=== PATIENT | male | born 1955 | race Caucasian/White ===

== ENCOUNTER 2016-07-17 18:12 | Inpatient (IN) | payer BC ==
--- NOTE | ~2016-07-17 | HP ---
History And Physical [place] [id number] [facility] [place]. [address] NAME: KEYLA CORDOBA : 51 STATUS : ADM IN PAT#: [id number] AGE: 60 ADM/REG DATE : 07/18/16 MR#: [id number] REPORT SERV DATE: 07/18/16 DICTATED BY: SAMANTHA MAN DATE: 07/18/16 REPORT STATUS : Draft TRANSCRIBED BY: MODL DATE: 07/18/16 DATE OF ADMISSION: 07/18/2016 CHIEF COMPLAINT: A 60-year-old male presenting with volume overload, cough, and shortness of breath. HISTORY OF PRESENTING ILLNESS: The patient's history was obtained through careful interview with the patient, coupled with review of [facility] medical records. The patient states that around 05/22/2016 he began to feel "sick." He first thought he had bronchitis, went to see his primary care physician and was placed on a course of Z-Phu and steroids with some improvement of his health, but no complete resolution of symptoms. He has noticed a "rattling" in his chest over that period of time and a persistent cough productive of a clear sputum. Also since about mid May 2016 he has had new onset lower extremity edema that has gradually progressed and not only affecting his legs, but getting up into his abdomen. Now his abdominal wall has a stiffness and swelling to it, and he also feels as if there is abdominal distention anteriorly as well. He has had very poor energy and significant fatigue. He states "I have lost my endurance". He describes shortness of breath characterized by dyspnea on exertion and intermittent orthopnea as well (although, he does wear CPAP at night). He has had discomfort related to his edema but his greatest pain complaint has been at the base inside of his lungs, a sharp aching quality, 7/10 severity exacerbated by coughing and breathing. He has also had significant prostate symptoms over the last several days, with difficulty getting good urine flow and often just dribbling urine. He is very discouraged about a 20-pound weight gain approximately over the last month or so. No palpitations, no chest pain otherwise at least in the middle of his chest. REVIEW OF SYSTEMS: Otherwise 14-point review of systems was obtained and was negative. PAST MEDICAL HISTORY: 1. Diabetes. 2. Pneumonia x3 as a child. 3. Hypertension. 4. Postoperative left hip infection. 5. Nephrolithiasis. History And Physical [address] [address] NAME: KEYLA CORDOBA : 51 STATUS : ADM IN PAT#: [id number] AGE: 60 ADM/REG DATE : 07/18/16 MR#: [id number] REPORT SERV DATE: 07/18/16 DICTATED BY: SAMANTHA MAN DATE: 07/18/16 REPORT STATUS : Draft TRANSCRIBED BY: DELIA DATE: 07/18/16 6. Hypotestosteronism. 7. Obstructive sleep apnea, on nightly CPAP. PAST SURGICAL HISTORY: 1. Left hip replacement. 2. Vasectomy. 3. Sinus surgery. 4. Right hand surgery. 5. UPPP. ALLERGIES: NO KNOWN DRUG ALLERGIES. SOCIAL HISTORY: He is , lives alone in [place], [place]. 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 No tobacco abuse. He drinks alcohol in moderation. FAMILY HISTORY: Mother and father with diabetes. A strong family history of heart disease, rheumatoid arthritis, and cancer. CURRENT MEDICATIONS: 1. Aspirin 81 mg daily. 2. Lipitor 20 mg daily. 3. Vitamin D. 4. Hydrochlorothiazide 25 mg daily. 5. Metformin 500 mg p.o. daily. 6. Multivitamin. 7. Saw [place] 450 mg daily. 8. Telmisartan 40 mg p.o. daily. 9. Testosterone injection every week. PHYSICAL EXAMINATION: VITAL SIGNS: Temperature 98.3, pulse 143, blood pressure 138/84, respiratory rate 18, and O2 saturation 94% on room air. GENERAL: An ill-appearing male, in evidence of distress secondary to shortness of breath. HEENT: Pupils equal, round, and reactive to light. No conjunctival pallor. No scleral icterus. Nares are patent. Oropharynx is clear of obstruction. Moist mucous membranes. NECK: Trachea midline. No thyromegaly. LYMPH: No cervical lymphadenopathy. No supraclavicular lymphadenopathy. RESPIRATORY: The patient has wet rales on examination that extend about the mid lung symmetrically. No wheezes. No rhonchi. The patient has a quite labored respiratory effort. CARDIOVASCULAR: Tachycardic. Irregularly irregular. No murmurs, rubs, or gallops. The patient has deeply pitting lower extremity edema with tight ankles and calves. The edema extends all the way up into his pelvis. The patient even has pitting edema of his abdominal wall now. ABDOMEN: Quite distended by examination. No tympanic resonance on percussion. [facility] History And Physical [place] [address] [place]. [address] NAME: KEYLA CORDOBA : 51 STATUS : ADM IN PAT#: [id number] AGE: 60 ADM/REG DATE : 07/18/16 MR#: [id number] REPORT SERV DATE: 07/18/16 DICTATED BY: SAMANTHA MAN DATE: 07/18/16 REPORT STATUS : Draft TRANSCRIBED BY: DELIA DATE: 07/18/16 tender throughout. Nonfocal. No rebound. No guarding. No hepatosplenomegaly. DERMATOLOGICAL: Warm and dry extremities. No pallor. No cyanosis. PSYCHIATRIC: Normal affect. Good mood. Alert and oriented x3. LABORATORY DATA: Brain natriuretic peptide 692. Troponin 0.04. INR 1.5. Total bilirubin 1.6. White blood cell count 10.9, hemoglobin 18, hematocrit 52, and platelets 175. Sodium 138, potassium 3.9, chloride 102, bicarb 25, BUN 26, creatinine 1.54, and glucose 119. STUDIES: 1. Chest x-ray by my own evaluation shows pulmonary vascular congestion, cardiomegaly, mild pulmonary edema. 2. EKG by my own evaluation shows rapid atrial fibrillation right bundle-branch block. 3. A reported venous Doppler ultrasound of bilateral lower extremities earlier on the day leading up to admission was stated as being negative for DVT. ASSESSMENT AND PLAN: 1. New diagnosis congestive heart with exacerbation. Check an echocardiogram. Place on IV Bumex. Add Coreg. Continue ARB. 2. Rapid atrial fibrillation. Place on a Cardizem drip IV. Start Xarelto. Check an echocardiogram. Obtain a Cardiology consult. 3. Obstructive sleep apnea. Place on CPAP. 4. Diabetes. Check hemoglobin A1c. Place on sliding scale insulin. Continue metformin. 5. Benign prostatic hypertrophy with obstruction. We had to place a Chand catheter in the emergency department. We will have this in place for 24 hours. Start Flomax, Proscar, and monitor. KPL/MODL Samantha Man M.D. / [id number] CC: Jeancarlos Saleem M.D.
--- NOTE | ~2016-07-17 | CN ---
Consultation Report [facility] [address] [place]. [address] NAME: KEYLA CORDOBA : 51 STATUS : ADM IN [facility]#: [id number] AGE: 60 ADM/REG DATE : 07/18/16 MR#: [id number] REPORT SERV DATE: 07/18/16 DICTATED BY: TYLOR JONES DATE: 07/18/16 REPORT STATUS : Draft TRANSCRIBED BY: MODL DATE: 07/18/16 CONSULTATION DATE OF CONSULTATION: 07/18/2016 REASON FOR CONSULTATION: Volume overload, atrial fib with RVR. HISTORY OF PRESENT ILLNESS: Mr. Cordoba is a pleasant 60-year-old gentleman with a history of morbid obesity, BPH, GEORGIE on CPAP, pre-diabetes, hypertension, and right bundle branch block, who presents to [facility] with complaints of progressive dyspnea as well as lower extremity swelling and weight gain over the past one to two months. He states that he had been sick starting 05/22/2016, with a cough, which was thought to be an upper respiratory infection initially. He was treated with antibiotics, without much improvement. He had progression of his symptoms as well as dyspnea. Over the course of May as well as June, he started to notice swelling in his lower extremities up to his abdomen. He gained approximately 20 pounds over this period of time. He has had only progression in his symptoms as well as some orthopnea and dyspnea on exertion most recently, prompting him to present to [facility] for further evaluation and care. He denies having any other symptoms at this point in time. He denies having any palpitations, or overt chest pains. PAST MEDICAL HISTORY: As above. 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 He denies drinking alcohol, doing drugs, or smoking. FAMILY HISTORY: Negative for premature cardiovascular disease. REVIEW OF SYSTEMS: As above, all other systems otherwise is negative. HOME MEDICATIONS: 1. Aspirin. 2. Lipitor. 3. Vitamin D. 4. Hydrochlorothiazide. 5. Metformin. 6. Multivitamin. 7. Saw [place]. 8. Micardis. 9. Testosterone. PHYSICAL EXAMINATION: VITAL SIGNS: BP 138/84, pulse 90, and temperature 98.3. GENERAL: Morbidly obese, well-developed, well-nourished, in no acute distress. NEURO: Awake, alert and oriented x3; no focal deficits, appropriate mood. Consultation Report [place] [id number] [place]. [address] NAME: KEYLA CORDOBA : 51 STATUS : ADM IN PAT#: [id number] AGE: 60 ADM/REG DATE : 07/18/16 MR#: [id number] REPORT SERV DATE: 07/18/16 DICTATED BY: TYLOR JONES DATE: 07/18/16 REPORT STATUS : Draft TRANSCRIBED BY: DELIA DATE: 07/18/16 HEENT: Moist mucous membranes, anicteric sclerae, no nasal discharge. NECK: No JVD, no carotid bruit. LUNGS: Clear to auscultation bilaterally, no wheezes, rales or rhonchi. CARDIAC: Irregularly irregular, 2/6 systolic murmur at the left sternal border, no rubs or gallops. ABD: Soft, non-tender, non-distended, no rebound or guarding. EXTREMITIES: 1 to 2+ pitting edema in the lower extremities bilaterally, otherwise warm with 1+ pulses throughout. SKIN: Warm, dry and intact; no rash. PERTINENT TEST FINDINGS: BNP of 690. Creatinine of 1.54 and decreasing. Chest x-ray with right pleural effusion, small. White blood cell count of 13.7. EKG with atrial fibrillation with RVR, right bundle branch block. Nonspecific ST changes. IMPRESSION AND PLAN: Mr. Cordoba is a pleasant 60-year-old gentleman with a history of morbid obesity, prediabetes, benign prostatic hyperplasia, and hypertension, who presents with progressive dyspnea, weight gain of 20 pounds, and lower extremity swelling over the past one to two months in the setting of volume overload and atrial fibrillation with rapid ventricular response. Accordingly, I have the following recommendations by problem below: 1. Volume overload - check an echocardiogram. Diurese as you are doing. Strict I's and O's, congestive heart failure education. Further recommendations to follow pending findings. Otherwise it will be fine to continue beta-jeni and ARB as written. 2. Atrial fibrillation with rapid ventricular response - continue Diltiazem drip as written. Dose Xarelto as written. Scheduled for KHUSHBOO cardioversion later this afternoon. 3. Prediabetes - metformin as written. Weight loss. 4. Benign prostatic hyperplasia - intolerant to Chand catheter. This has been discontinued this morning, and the patient is doing quite well. The nurse is planning to do a bladder scan, which I believe is a good idea, given his benign prostatic hyperplasia history. IZABELA/DELIA Tylor Jones MD / [id number] CC: Jeancarlos Saleem M.D.
--- NOTE | ~2016-07-17 | DS ---
Discharge Summary [facility] [address] [place]. [address] NAME: KEYLA CORDOBA : 51 STATUS : DIS IN PAT#: [id number] AGE: 60 ADM/REG DATE : 07/18/16 MR#: [id number] REPORT SERV DATE: 07/22/16 DICTATED BY: SHAKEEL PINO DATE: 07/21/16 REPORT STATUS : Draft TRANSCRIBED BY: MODL DATE: 07/21/16 ADMISSION DATE: 07/18/2016 DISCHARGE DATE: 07/21/2016 PRINCIPAL DIAGNOSIS: Acute congestive heart failure, systolic, new diagnosis, nonischemic, ejection fraction of 30%. SECONDARY DIAGNOSES: 1. Atrial fibrillation with rapid ventricular response. 2. Cor pulmonale with right heart failure due to obstructive sleep apnea. 3. Androgen excess. 4. Anasarca. 5. Type 2 diabetes. 6. BPH exacerbated by androgen excess. HISTORY OF PRESENT ILLNESS: Please see Dr. Morris's dictation of 07/18/2016. HOSPITAL COURSE: The patient was admitted with acute congestive heart failure, found to be in atrial fibrillation with RVR. The patient received medical therapies for CHF and KHUSHBOO with cardioversion with normalization of normal sinus rhythm. However, on echocardiography, he was found to have a very reduced ejection fraction of 30% and dilated bilateral atria and long-term maintenance of normal sinus rhythm was felt to be unlikely. The patient had no wall motion abnormalities and the source of his cardiac dysfunction remained in question; however, testosterone levels were checked and found to be 1997 which is very concerning for complications of androgen excess. The patient apparently had had levels checked a few weeks prior, found to be within normal limits. However, testosterone like other hormones is a very difficult molecule to measure accurately, but a level at that extreme height was abnormal by any stretch and under any circumstances. Testosterone was therefore recommended to be discontinued. He had had issues with urinary retention anyway, and we felt that BPH may have also been complicated by his androgen excess. He received after load reduction with ongoing use of the telmisartan. He received a diuretic infusion with massive volume loss changing over to Demadex which continued to work well. He was put on metoprolol which controlled his heart rate, although he did in fact go back to atrial fibrillation as expected. He had been placed upon Xarelto for stroke prophylaxis and was counseled at length about long-term management. Lipitor was increased to 40 at bedtime. He was released on Demadex 20 daily, Toprol-XL 25 daily, magnesium oxide 800 daily, potassium 20 daily, Aldactone 25 daily, Flomax 0.4 daily, Xarelto 20 daily, and to continue daily aspirin over the counter. He will follow with Dr. Dueñas [facility] in two weeks and for re- evaluation of his ejection fraction in 4 to 6 weeks which may include stress testing and consideration of revascularization. Lastly, due to the patient's new diagnosis of low EF and some episodic wide-complex tachycardia, which while felt to be atrial fibrillation, was concerning for the possibility of ventricular tachy-arrhythmias. He was fitted for a LifeVest and was released with a LifeVest also to be taken until ejection fraction was restored or ultimately an AICD was placed. His prognosis, however, for recovery of ejection fraction was felt to be excellent with optimal medical therapy and elimination of androgen excess. He was advised, however, in coming months to re-evaluate his androgen levels, but Discharge Summary [address] [place]. [address] NAME: KEYLA CORDOBA : 51 STATUS : DIS IN PAT#: [id number] AGE: 60 ADM/REG DATE : 07/18/16 MR#: [id number] REPORT SERV DATE: 07/22/16 DICTATED BY: SHAKEEL PINO DATE: 07/21/16 REPORT STATUS : Draft TRANSCRIBED BY: DELIA DATE: 07/21/16 that level should be checked very carefully and possibly multiple times prior to a diagnosis of primary hypogonadism being made. 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 He will follow up Dr. Kye Michaels in one to two weeks and Dr. Dueñas as mentioned. Greater than 30 minutes spent with the patient on discharge planning on the discharge day. DOMENICA/DELIA Shakeel Pino M.D. / [id number] CC: Jeancarlos Saleem M.D. Vimal Ramjee, MD
--- NOTE | ~2016-07-17 | OP ---
Record Of Operation [facility] [address] [place]. [address] NAME: KEYLA CORDOBA : 51 STATUS : ADM IN PAT#: [id number] AGE: 60 ADM/REG DATE : 07/18/16 MR#: [id number] REPORT SERV DATE: 07/18/16 DICTATED BY: TYLOR JONES DATE: 07/18/16 REPORT STATUS : Draft TRANSCRIBED BY: MODL DATE: 07/18/16 DATE OF PROCEDURE: 07/18/2016 PROCEDURE TYPE: Elective transesophageal echocardiogram with cardioversion. INDICATION: Atrial fibrillation. PROCEDURE DESCRIPTION: Informed consent was obtained. Anesthesia administered sedation. Upon successful sedation, the transesophageal probe was inserted without complication. Salient echocardiographic windows were obtained, with particular attention to the left atrial appendage. The left atrial appendage was cleared of thrombus. Upon clearance, the patient was cardioverted with 200 joules x1 to sinus rhythm at 80 beats per minute. The patient tolerated the procedure well without complication. ECHOCARDIOGRAPHIC FINDINGS: 1. Moderate LV systolic dysfunction, with an estimated ejection fraction of about 30% to 35%. 2. At least mildly enlarged with mildly decreased systolic function of the RV. 3. At least moderate aortic stenosis, but probably severe (peak velocity approximately 4 m/sec). 4. Color Doppler demonstrates PFO. 5. Interatrial septal aneurysm is present. 6. No thrombus is seen in the left atrial appendage at the time of the study. 7. Mild mitral regurgitation and tricuspid regurgitation is seen on color Doppler assessment. VR/MEGHAL Tylor Jones MD / [id number] CC: Jeancarlos Saleem M.D.
[2016-07-17 18:48] LABS: BASOPHILS 0.2 %; BASOPHILS ABSOLUTE 0.02 10/3/uL (0.0-0.16); EOSINOPHILS 0.7 %; EOSINOPHILS ABSOLUTE 0.08 10/3/uL (0.0-0.53); ER CBC TAT 0 Hrs 13 Mins; HEMOGLOBIN 18.5 g/dL (13.6-17.8); IMMATURE GRANULOCYTES 0.4 %; IMMATURE GRANULOCYTES ABSOLUTE 0.04 10/3/uL (0.0-0.11); LYMPHOCYTES 24.2 %; LYMPHOCYTES ABSOLUTE 2.64 10/3/uL (0.67-4.30); MANUAL DIFF NO %; MEAN CORPUS HGB CONC 35.6 g/dL (32.0-36.0); MEAN CORPUSCULAR HEMOGLOB 33.8 pg (26.0-34.0); MEAN CORPUSCULAR VOLUME 95.1 fL (80-100); MEAN PLATELET VOLUME 10.1 fL (9.2-13.0); MONOCYTES 12.3 %; MONOCYTES ABSOLUTE 1.34 10/3/uL (0.21-1.20); NEUTROPHILS 62.2 %; NEUTROPHILS ABSOLUTE 6.81 10/3/uL (2.02-8.40); PLATELET COUNT 175 10/3/uL (150-400); RBC DISTRIBUTION WIDTH 15.5 % (12.0-16.0); RED CELL COUNT 5.47 10/6/uL (4.7-6.1); WHITE BLOOD CELLS 10.9 10/3/uL (4.5-10.5)
[2016-07-17 18:54] LABS: INTERNATIONAL NORMAL RATI 1.5 UNITS (-); PROTIME (NOT ORD) 17.6 SEC (12.0-14.5)
[2016-07-17 18:55] LABS: PARTIAL THROMBO TIME 30.4 SEC (22.5-37.2)
[2016-07-17 19:05] LABS: BUN (BLOOD UREA NITROGEN) 26 MG/DL (6-23); CALCIUM, SERUM 8.6 MG/DL (8.5-10.4); CHEST PAIN PROFILE TAT 0 Hrs 30 Mins; CHLORIDE, SERUM 102 MMOL/L (96-112); CO2 (CARBON DIOXIDE) 25 MMOL/L (24-34); CREATININE 1.54 MG/DL (0.70-1.30); GFR AFRICAN AMERICAN 55 ML/MIN (>=60); GFR NON AFRICAN AMERICAN 48 ML/MIN (>=60); GLUCOSE, SERUM 119 MG/DL (60-99); POTASSIUM, SERUM 3.9 MMOL/L (3.5-5.3); SODIUM, SERUM 138 MMOL/L (135-148); TROPONIN I 0.04 NG/ML (<0.05)
[2016-07-17 23:56] LABS: ALBUMIN 3.5 G/DL (3.5-5.0); ALKALINE PHOSPHATASE 117 U/L (45-117); DIRECT BILIRUBIN 0.7 MG/DL (0.0-0.4); INDIRECT BILIRUBIN(NOT ORDER) 0.9 MG/DL (0.1-0.9); SGPT(ALT) 51 U/L (5-65); TOTAL BILIRUBIN 1.6 MG/DL (0-1.2); TOTAL PROTEIN 6.6 G/DL (6.0-8.5)
[2016-07-17 23:57] LABS: SGOT(AST) 61 U/L (5-40)
[2016-07-18] MEDS ORDERED: HALF81 PO (00:41)
[2016-07-18] MEDS ORDERED: HYDROCHLOROT25 MG PO (00:41)
[2016-07-18] MEDS ORDERED: MICARDIS40 PO (00:41)
[2016-07-18] MEDS ORDERED: SAW PALMETT2 PO (00:42)
[2016-07-18] MEDS ORDERED: VITAMIN D31000 UNIT PO (00:42)
[2016-07-18] MEDS ORDERED: LIPITOR20 PO (00:43)
[2016-07-18] MEDS ORDERED: GLUCPH PO (00:43)
[2016-07-18] MEDS ORDERED: MULTIVIT/MIN PO (00:43)
[2016-07-18] MEDS ORDERED: TESTOST CYP100 MG/ML IM (00:44)
[2016-07-18 06:48] LABS: BASOPHILS 0.1 %; BASOPHILS ABSOLUTE 0.02 10/3/uL (0.0-0.16); EOSINOPHILS 0.1 %; EOSINOPHILS ABSOLUTE 0.02 10/3/uL (0.0-0.53); HEMATOCRIT 52.2 % (40.0-51.0); HEMOGLOBIN 18.7 g/dL (13.6-17.8); IMMATURE GRANULOCYTES 0.1 %; IMMATURE GRANULOCYTES ABSOLUTE 0.02 10/3/uL (0.0-0.11); LYMPHOCYTES 14.9 %; LYMPHOCYTES ABSOLUTE 2.04 10/3/uL (0.67-4.30); MEAN CORPUS HGB CONC 35.8 g/dL (32.0-36.0); MEAN CORPUSCULAR HEMOGLOB 33.9 pg (26.0-34.0); MEAN CORPUSCULAR VOLUME 94.7 fL (80-100); MEAN PLATELET VOLUME 9.7 fL (9.2-13.0); MONOCYTES 9.1 %; MONOCYTES ABSOLUTE 1.25 10/3/uL (0.21-1.20); NEUTROPHILS 75.7 %; NEUTROPHILS ABSOLUTE 10.38 10/3/uL (2.02-8.40); PLATELET COUNT 169 10/3/uL (150-400); RBC DISTRIBUTION WIDTH 15.7 % (12.0-16.0); RED CELL COUNT 5.51 10/6/uL (4.7-6.1); WHITE BLOOD CELLS 13.7 10/3/uL (4.5-10.5)
[2016-07-18 06:49] LABS: MANUAL DIFF NO %
[2016-07-18 06:53] LABS: INTERNATIONAL NORMAL RATI 1.3 UNITS (-); PARTIAL THROMBO TIME 32.1 SEC (22.5-37.2); PROTIME (NOT ORD) 16.4 SEC (12.0-14.5)
[2016-07-18 07:12] LABS: A/G RATIO 1.1 (0.7-1.9); ALBUMIN 3.6 G/DL (3.5-5.0); BUN (BLOOD UREA NITROGEN) 23 MG/DL (6-23); CALCIUM, SERUM 9.2 MG/DL (8.5-10.4); CHLORIDE, SERUM 100 MMOL/L (96-112); CK-MB 7.7 NG/ML; CO2 (CARBON DIOXIDE) 22 MMOL/L (24-34); CREATININE 1.41 MG/DL (0.70-1.30); GFR AFRICAN AMERICAN 61 ML/MIN (>=60); GFR NON AFRICAN AMERICAN 53 ML/MIN (>=60); GLOBULIN 3.4 G/DL (2.5-4.1); GLUCOSE, SERUM 114 MG/DL (60-99); SGPT(ALT) 49 U/L (5-65); SODIUM, SERUM 136 MMOL/L (135-148); TROPONIN I 0.04 NG/ML (<0.05)
[2016-07-18 07:14] LABS: ALKALINE PHOSPHATASE 101 U/L (45-117); CKMB INDEX (NOT ORD) 3.3; CPK 230 U/L (0-200); POTASSIUM, SERUM 3.8 MMOL/L (3.5-5.3); SGOT(AST) 50 U/L (5-40); TOTAL BILIRUBIN 2.1 MG/DL (0-1.2)
[2016-07-19 15:02] LABS: BUN (BLOOD UREA NITROGEN) 25 MG/DL (6-23); CALCIUM, SERUM 8.6 MG/DL (8.5-10.4); CHLORIDE, SERUM 97 MMOL/L (96-112); CREATININE 1.56 MG/DL (0.70-1.30); GFR AFRICAN AMERICAN 54 ML/MIN (>=60); GFR NON AFRICAN AMERICAN 47 ML/MIN (>=60); GLUCOSE, SERUM 123 MG/DL (60-99); POTASSIUM, SERUM 3.7 MMOL/L (3.5-5.3); SODIUM, SERUM 136 MMOL/L (135-148)
[2016-07-19 15:03] LABS: CO2 (CARBON DIOXIDE) 30 MMOL/L (24-34)
[2016-07-20 05:38] LABS: BASOPHILS 0.2 %; BASOPHILS ABSOLUTE 0.02 10/3/uL (0.0-0.16); EOSINOPHILS 0.8 %; EOSINOPHILS ABSOLUTE 0.07 10/3/uL (0.0-0.53); HEMATOCRIT 53.2 % (40.0-51.0); HEMOGLOBIN 18.3 g/dL (13.6-17.8); IMMATURE GRANULOCYTES 0.3 %; IMMATURE GRANULOCYTES ABSOLUTE 0.03 10/3/uL (0.0-0.11); LYMPHOCYTES ABSOLUTE 2.51 10/3/uL (0.67-4.30); MEAN CORPUS HGB CONC 34.4 g/dL (32.0-36.0); MEAN CORPUSCULAR HEMOGLOB 33.2 pg (26.0-34.0); MEAN CORPUSCULAR VOLUME 96.6 fL (80-100); MEAN PLATELET VOLUME 10.5 fL (9.2-13.0); MONOCYTES 10.1 %; MONOCYTES ABSOLUTE 0.94 10/3/uL (0.21-1.20); NEUTROPHILS 61.6 %; NEUTROPHILS ABSOLUTE 5.73 10/3/uL (2.02-8.40); PLATELET COUNT 182 10/3/uL (150-400); RBC DISTRIBUTION WIDTH 15.5 % (12.0-16.0); RED CELL COUNT 5.51 10/6/uL (4.7-6.1); WHITE BLOOD CELLS 9.3 10/3/uL (4.5-10.5)
[2016-07-20 05:43] LABS: MANUAL DIFF NO %
[2016-07-20 05:47] LABS: BUN (BLOOD UREA NITROGEN) 25 MG/DL (6-23); CHLORIDE, SERUM 94 MMOL/L (96-112); CO2 (CARBON DIOXIDE) 32 MMOL/L (24-34); CREATININE 1.68 MG/DL (0.70-1.30); GFR AFRICAN AMERICAN 50 ML/MIN (>=60); GFR NON AFRICAN AMERICAN 43 ML/MIN (>=60); SODIUM, SERUM 138 MMOL/L (135-148)
[2016-07-20 06:06] LABS: GLUCOSE, SERUM 82 MG/DL (60-99); POTASSIUM, SERUM 3.6 MMOL/L (3.5-5.3)
[2016-07-21 04:24] LABS: BUN (BLOOD UREA NITROGEN) 26 MG/DL (6-23); CALCIUM, SERUM 8.9 MG/DL (8.5-10.4); CHLORIDE, SERUM 92 MMOL/L (96-112); CO2 (CARBON DIOXIDE) 35 MMOL/L (24-34); CREATININE 1.55 MG/DL (0.70-1.30); GFR AFRICAN AMERICAN 55 ML/MIN (>=60); GFR NON AFRICAN AMERICAN 47 ML/MIN (>=60); GLUCOSE, SERUM 95 MG/DL (60-99); POTASSIUM, SERUM 3.5 MMOL/L (3.5-5.3); SODIUM, SERUM 136 MMOL/L (135-148)
[2016-07-21] MEDS ORDERED: LIPITOR40 PO (11:35)
[2016-07-21] MEDS ORDERED: TOPXL25 (11:38)
[2016-07-21] MEDS ORDERED: DEMA20 PO (11:42)
[2016-07-21] MEDS ORDERED: MAGOX4 PO (11:43)
[2016-07-21] MEDS ORDERED: KDUR20 PO (11:43)
[2016-07-21] MEDS ORDERED: SPIRO25 PO (11:44)
[2016-07-21] MEDS ORDERED: FLOMAX4 PO (11:45)
[2016-07-24] MEDS ORDERED: ELIQUIS 5 MG TAB5 MG PO (15:04)
[2016-07-24] MEDS ORDERED: TOPXL50 PO (15:04)
[2016-07-24] MEDS ORDERED: PACERONE200 MG PO (15:05)
== END 2016-07-21 15:29 | disposition home or self-care (01) | DRG 308 ==
LOC: ER 18:12 → 7NO 07-18 00:45
PROVIDERS: Emergency Medicine; Hospitalist; Internal Medicine
PROC: B246ZZ4 Ultrasonography of Right and Left Heart, Transesophageal (ICD-10-PCS; principal; 2016-07-18)
PROC: 5A2204Z Restoration of Cardiac Rhythm, Single (ICD-10-PCS; 2016-07-18)
DX: I48.91 Unspecified atrial fibrillation (principal); I50.23 Acute on chronic systolic (congestive) heart failure; I27.81 Cor pulmonale (chronic); I08.3 Combined rheumatic disorders of mitral, aortic and tricuspid valves; N13.8 Other obstructive and reflux uropathy; D75.1 Secondary polycythemia; G47.33 Obstructive sleep apnea (adult) (pediatric); E11.9 Type 2 diabetes mellitus without complications; N40.1 Benign prostatic hyperplasia with lower urinary tract symptoms; E29.0 Testicular hyperfunction; Z96.642 Presence of left artificial hip joint; Z83.3 Family history of diabetes mellitus; Z82.49 Family history of ischemic heart disease and other diseases of the circulatory system; T38.7X5A Adverse effect of androgens and anabolic congeners, initial encounter
CPT/HCPCS: 71010; 71020; 80048; 80053; 80076; 82550; 82553; 82962; 83735; 83880; 84403; 84443; 84484; 85025; 85610; 85730; 92960; 93005; 93312; 93320; 93325; 96374; 99291; A9270-GY; C8929; J1940; Q9957

== ENCOUNTER 2016-07-22 11:54 | Emergency (ER) | payer BC ==
[2016-07-22 11:07] LABS: BASOPHILS 0.2 %; BASOPHILS ABSOLUTE 0.02 10/3/uL (0.0-0.16); EOSINOPHILS 0.3 %; EOSINOPHILS ABSOLUTE 0.03 10/3/uL (0.0-0.53); HEMATOCRIT 52.6 % (40.0-51.0); HEMOGLOBIN 18.7 g/dL (13.6-17.8); IMMATURE GRANULOCYTES 0.1 %; IMMATURE GRANULOCYTES ABSOLUTE 0.01 10/3/uL (0.0-0.11); LYMPHOCYTES 18.9 %; LYMPHOCYTES ABSOLUTE 1.82 10/3/uL (0.67-4.30); MANUAL DIFF NO %; MEAN CORPUS HGB CONC 35.6 g/dL (32.0-36.0); MEAN CORPUSCULAR HEMOGLOB 33.5 pg (26.0-34.0); MEAN CORPUSCULAR VOLUME 94.3 fL (80-100); MEAN PLATELET VOLUME 9.7 fL (9.2-13.0); MONOCYTES 11.4 %; NEUTROPHILS 69.1 %; NEUTROPHILS ABSOLUTE 6.67 10/3/uL (2.02-8.40); PLATELET COUNT 182 10/3/uL (150-400); RBC DISTRIBUTION WIDTH 15.3 % (12.0-16.0); RED CELL COUNT 5.58 10/6/uL (4.7-6.1); WHITE BLOOD CELLS 9.7 10/3/uL (4.5-10.5)
[2016-07-22 11:13] LABS: INTERNATIONAL NORMAL RATI 1.8 UNITS (-); PARTIAL THROMBO TIME 34.7 SEC (22.5-37.2)
[2016-07-22 11:18] LABS: PROTIME (NOT ORD) 20.3 SEC (12.0-14.5)
[2016-07-22 11:20] LABS: CALCIUM, SERUM 8.8 MG/DL (8.5-10.4); CHEST PAIN PROFILE TAT 0 Hrs 19 Mins; CHLORIDE, SERUM 90 MMOL/L (96-112); CO2 (CARBON DIOXIDE) 34 MMOL/L (24-34); CREATININE 1.42 MG/DL (0.70-1.30); GFR AFRICAN AMERICAN 61 ML/MIN (>=60); GFR NON AFRICAN AMERICAN 53 ML/MIN (>=60); POTASSIUM, SERUM 3.8 MMOL/L (3.5-5.3); SODIUM, SERUM 135 MMOL/L (135-148); TROPONIN I 0.02 NG/ML (<0.05)
[2016-07-22 11:21] LABS: BUN (BLOOD UREA NITROGEN) 31 MG/DL (6-23); GLUCOSE, SERUM 158 MG/DL (60-99)
[~2016-07-22 11:54] MED LIST: DEMA20 PO; FLOMAX4 PO; GLUCPH PO; HALF81 PO; HYDROCHLOROT25 MG PO; KDUR20 PO; LIPITOR20 PO; LIPITOR40 PO; MAGOX4 PO; MICARDIS40 PO; MULTIVIT/MIN PO; SAW PALMETT2 PO; SPIRO25 PO; TESTOST CYP100 MG/ML IM; TOPXL25; VITAMIN D31000 UNIT PO
[2016-07-24] MEDS ORDERED: ELIQUIS 5 MG TAB5 MG PO (15:04)
[2016-07-24] MEDS ORDERED: TOPXL50 PO (15:04)
[2016-07-24] MEDS ORDERED: PACERONE200 MG PO (15:05)
== END 2016-07-22 12:59 | disposition home or self-care (01) ==
LOC: ER 11:54
PROVIDERS: Emergency Medicine
DX: I48.91 Unspecified atrial fibrillation (principal); I11.0 Hypertensive heart disease with heart failure; I50.9 Heart failure, unspecified; E11.9 Type 2 diabetes mellitus without complications; Z79.82 Long term (current) use of aspirin; Z79.899 Other long term (current) drug therapy
CPT/HCPCS: 71010; 80048; 83735; 83880; 84484; 85025; 85610; 85730; 93005; 96374; 96375; 99285

== ENCOUNTER 2016-09-17 10:27 | Inpatient (IN) | payer BC ==
[2016-09-06 11:12] LABS: BASOPHILS 0.1 %; BASOPHILS ABSOLUTE 0.01 10/3/uL (0.0-0.16); EOSINOPHILS 0.7 %; EOSINOPHILS ABSOLUTE 0.05 10/3/uL (0.0-0.53); HEMATOCRIT 46.4 % (40.0-51.0); HEMOGLOBIN 16.4 g/dL (13.6-17.8); IMMATURE GRANULOCYTES 0.1 %; IMMATURE GRANULOCYTES ABSOLUTE 0.01 10/3/uL (0.0-0.11); LYMPHOCYTES 47.2 %; LYMPHOCYTES ABSOLUTE 3.15 10/3/uL (0.67-4.30); MANUAL DIFF NO %; MEAN CORPUS HGB CONC 35.3 g/dL (32.0-36.0); MEAN CORPUSCULAR HEMOGLOB 32.8 pg (26.0-34.0); MEAN CORPUSCULAR VOLUME 92.8 fL (80-100); MEAN PLATELET VOLUME 10.2 fL (9.2-13.0); MONOCYTES 10.8 %; MONOCYTES ABSOLUTE 0.72 10/3/uL (0.21-1.20); NEUTROPHILS 41.1 %; NEUTROPHILS ABSOLUTE 2.74 10/3/uL (2.02-8.40); PLATELET COUNT 157 10/3/uL (150-400); RBC DISTRIBUTION WIDTH 13.8 % (12.0-16.0); WHITE BLOOD CELLS 6.7 10/3/uL (4.5-10.5)
[2016-09-06 11:17] LABS: INTERNATIONAL NORMAL RATI 1.4 UNITS (-)
[2016-09-06 11:18] LABS: PROTIME (NOT ORD) 17.2 SEC (12.0-14.5)
[2016-09-06 11:34] LABS: % IRON SAT 94 % (20-50); A/G RATIO 1.3 (0.7-1.9); ALBUMIN 4.2 G/DL (3.5-5.0); BUN (BLOOD UREA NITROGEN) 31 MG/DL (6-23); CALCIUM, SERUM 9.8 MG/DL (8.5-10.4); CHLORIDE, SERUM 100 MMOL/L (96-112); CREATININE 1.69 MG/DL (0.70-1.30); GFR AFRICAN AMERICAN 49 ML/MIN (>=60); GFR NON AFRICAN AMERICAN 43 ML/MIN (>=60); GLOBULIN 3.3 G/DL (2.5-4.1); IRON BINDING CAPACITY 282 MCG/DL (250-450); IRON, SERUM 265 MCG/DL (35-150); POTASSIUM, SERUM 4.9 MMOL/L (3.5-5.3); SGOT(AST) 30 U/L (5-40); SGPT(ALT) 47 U/L (5-65); SODIUM, SERUM 138 MMOL/L (135-148); TOTAL PROTEIN 7.5 G/DL (6.0-8.5)
[2016-09-06 11:35] LABS: ALKALINE PHOSPHATASE 89 U/L (45-117); CO2 (CARBON DIOXIDE) 34 MMOL/L (24-34); GLUCOSE, SERUM 80 MG/DL (60-99); TOTAL BILIRUBIN 0.8 MG/DL (0-1.2)
[2016-09-06 13:17] LABS: ASCORBIC ACID (UR NOT ORDER) NEG (NEG); BILIRUBIN, URINE NEGATIVE (NEG); KETONE, URINE NEGATIVE (NEG); LEUKOCYTE ESTERASE(NOT OR NEG (NEG); WBC (NOT ORDERED) (RFLEX) 1 (0-5)
--- NOTE | ~2016-09-17 | CN ---
Consultation Report [facility] [address] [place]. [address] NAME: KEYLA CORDOBA : 51 STATUS : ADM IN PAT#: [id number] AGE: 60 ADM/REG DATE : 09/17/16 MR#: [id number] REPORT SERV DATE: 09/19/16 DICTATED BY: LITZY TERAN DATE: 09/18/16 REPORT STATUS : Draft TRANSCRIBED BY: MODL DATE: 09/18/16 CONSULTATION DATE OF CONSULTATION: 09/18/2016 REASON FOR CONSULTATION: Consulted for diabetes management. IDENTIFYING DATA: 1. Primary care physician Kye Michaesl in [place], [place]. 2. Strategic Planning Manager, Tylor Dueñas M.D. 3. Cardiovascular surgeon, Juan Bird M.D. 4. Orthopedist in the past, Renzo Hanson M.D. HISTORY OF PRESENT ILLNESS: This is a pleasant 60-year-old, male with a history of hypertension, chronic systolic congestive heart failure, paroxysmal atrial fibrillation, nephrolithiasis, obstructive sleep apnea on CPAP, nonischemic cardiomyopathy, diabetes type 2, BPH, high cholesterol who is presently status post aortic valve replacement, Maze procedure with KHUSHBOO, left ventricular lead placement with Dr. Juan Bird. This is postop day 1. The patient's history was obtained through careful interview with the patient as well as review of [facility] and [facility]. The patient was admitted by the hospitalist on 07/18/2016, where he states that he started getting sick around 05/22/2016. He thought he had bronchitis. He saw his primary care physician and received a course of Z-Phu and steroids and he says he had some improvement but there was never a resolution of any of his symptoms. He then became more short of breath with persistent cough and production of clear sputum. Then he began in May mid to late May of 2016 have a lower extremity edema that progressed not only to where it affected his legs but it was getting into his abdomen. He had abdominal wall stiffness and swelling and distention anteriorly as well. The patient states he had very poor energy and was significantly fatigued. At that time, the patient was actually admitted for volume overload and atrial fib with RVR for which his meat stock clerk Dr. Dueñas was consulted for management. The patient had echo done on 08/02/2016 that showed that he had an EF of around 30-35% with moderate severe compromise of right ventricular systolic function as well as aortic sclerosis. A cath was done on 08/07/2016 that showed his EF at 35% where he had severe aortic stenosis and mild pulmonary hypertension. As a result of his symptoms, he was referred to Dr. Juan Bird for which he is now status post aortic valve replacement. The hospitalist group has been consulted for diabetes management postoperatively. The patient states he has never been told he is diabetic. He has never been on medication at home nor has he been on a specific diet for diabetes. Presently, he is on an insulin drip. His last fingerstick blood sugar was 98. PAST MEDICAL HISTORY: 1. Pneumonia x3 as a child. 2. Hypertension. 3. Postoperative left hip infection. 4. Chronic systolic congestive heart failure. Consultation Report [place] [id number] [facility] [place]. [address] NAME: KEYLA CORDOBA : 51 STATUS : ADM IN [facility]#: [id number] AGE: 60 ADM/REG DATE : 09/17/16 MR#: [id number] REPORT SERV DATE: 09/19/16 DICTATED BY: LITZY TERAN DATE: 09/18/16 REPORT STATUS : Draft TRANSCRIBED BY: DELIA DATE: 09/18/16 5. Paroxysmal atrial fibrillation. 6. Nephrolithiasis. 7. Hypotestosteronism. 8. Obstructive sleep apnea on CPAP. 9. Morbid obesity with present BMI greater than 35 and weight at 115 kg. 10.History of right bundle branch block. 11.Nonischemic cardiomyopathy. 12.Diabetes type 2. 13.BPH. 14.High cholesterol. 15.Coagulopathy in the past with polycythemia vera. 16.PFO with atrial septal defect. 17.Murmur. 18.Chronic kidney disease stage 3. ALLERGIES: NO KNOWN ALLERGIES. HOME MEDICATIONS: 1. Amiodarone 200 mg p.o. twice a day. 2. Eliquis 5 mg p.o. twice a day. 3. Enteric coated aspirin 81 mg p.o. every morning. 4. Lipitor 40 mg p.o. at bedtime. 5. Vitamin D3 1000 units p.o. every morning. 6. Mag-ox 400 mg p.o. twice a day. 7. Toprol-XL 50 mg p.o. every morning. 8. Multivitamins with minerals one tablet p.o. daily. 9. K-Dur 20 mEq p.o. daily. 10.Aldactone 25 mg p.o. daily. 11.Flomax 0.4 mg p.o. at bedtime. 12.Micardis 20 mg p.o. daily. 13.Demadex 20 mg p.o. daily. SOCIAL HISTORY: The patient is . He does live in [place], [place]. 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 He has three grown children. No tobacco or illicit drug use. He does drink occasionally and usually no more than drink at most per day. FAMILY HISTORY: Positive for coronary artery disease, rheumatoid arthritis and cancer. 1. Mother was diabetic, had cardiac arrhythmias, congestive heart failure, [place], hypertension, and hyperlipidemia. 2. Father was diabetic. He had hypertension, hyperlipidemia, and is and had a brain tumor. 3. Sister had hypertension, diabetes, and hyperlipidemia. 4. The patient's daughter has rheumatoid arthritis. Consultation Report [address] [address] NAME: KEYLA CORDOBA : 53 STATUS : ADM IN [facility]#: [id number] AGE: 60 ADM/REG DATE : 09/17/16 MR#: [id number] REPORT SERV DATE: 09/19/16 DICTATED BY: LITZY TERAN DATE: 09/18/16 REPORT STATUS : Draft TRANSCRIBED BY: MODKeiko DATE: 09/18/16 SURGICAL HISTORY: 1. Left hip surgery in 2006. 2. KHUSHBOO and cardioversion x2 on 07/18/2016 and again on 07/29/2016. 3. Tonsillectomy. 4. Left carpal tunnel surgery in 2004. 5. Vasectomy at 29 years of age. 6. Sinus surgery with UPPP. 7. Left hand surgery on the ulnar nerve in 2014. 8. Cardiac cath on 08/07/2016. REVIEW OF SYSTEMS: Review of systems are negative other than what is included in HPI. The patient presently is resting in bed, is alert and oriented x3. Has no shortness of breath. No nausea or vomiting. No abdominal pain. No chest pain. No fever, displays no confusion or agitation. PHYSICAL EXAMINATION: VITAL SIGNS: From today; blood pressure 126/60, respiratory rate 16, heart rate 87, temperature 99.5, O2 saturation 95%. GENERAL: This is a very obese male, resting in bed. He is in no acute distress. He is pleasant and answers questions appropriately. NEURO: His head is atraumatic and normocephalic. He is alert and oriented x3. Cranial nerves are intact. His mood is pleasant and appropriate. NECK: Supple. His trachea is midline. No noted JVD. No obvious thyromegaly or lymphadenopathy. EENT: His sclerae are nonicteric. Pupils are equal and reactive to light. Nares are patent. Mucous membranes moist. Tongue is midline without deviation. His soft palate rises equally with phonation. CHEST: No pain with palpation. He does have a midline sternotomy covered with dressing. He does have a chest tube to the atrium at -20 cm of suction with serosanguineous drainage noted. He also has pacing wires taped beneath dressings on his chest. LUNGS: Clear to auscultation. He has normal respiratory effort. He is diminished in the bases. He is encouraged to use that incentive spirometer frequently to prevent atelectasis and pneumonia. I explained that his chest x-ray from today did note that he had atelectasis. CARDIOVASCULAR: S1, S2. He is on telemetry. He has a regular rhythm with a rate at 86. ABDOMEN: Soft, nontender. Bowel sounds are active. No palpable organomegaly. Last bowel movement was on 09/17/2016. EXTREMITIES: No edema. Normal distal pulses. No calf tenderness. He does have bilateral TEDs on for DVT prophylaxis. SKIN: Warm and dry. No unusual rashes or lesions. Normal color and turgor for age. PSYCH: He is pleasant and cooperative. Appropriate mood and affect. SURGICAL WOUND SITE: His dressings are clean, dry, and intact. LABORATORY DATA: Sodium 143, potassium 4.9, chloride 111, BUN 35, creatinine 1.61, and GFR 52. Glucose 89, calcium 8.9, magnesium 2.6, white blood cell 18.4, hemoglobin 11.0, Consultation Report [address] [place]. [address] NAME: KEYLA CORDOBA : 51 STATUS : ADM IN [facility]#: [id number] AGE: 60 ADM/REG DATE : 09/17/16 MR#: [id number] REPORT SERV DATE: 09/19/16 DICTATED BY: LITZY TERAN DATE: 09/18/16 REPORT STATUS : Draft TRANSCRIBED BY: DELIA DATE: 09/18/16 hematocrit 32.2, platelets 111, and INR 1.2. The patient was on an insulin drip. His last blood sugars were 107, 86, 64, 105, 118, 117, 140, 135, and presently his blood sugar is 98. His chest x-ray on 09/18/2016 showed increase in a band like perihilar subsegmental atelectasis. On 08/02/2016, the patient had an echo that showed 30% EF with moderate to severe compromise of the right ventricular systolic function. Cath done on 08/07/2016 showed an EF of 35% with severe aortic stenosis and mild pulmonary hypertension. ASSESSMENT/PLAN: 1. Diabetes type 2. The patient states he has had no history of diabetes. He is not on any medication at home nor does he follow a diet, and he does see his PCP who monitors his lab work. Based on the weight based estimation, he would require about 60 units of insulin. We have the hematology nurse educator that will see him in the morning regarding diet because he is morbidly obese as well as management for his diabetes at present time. We will check a hemoglobin A1c on morning labs. We will give him Levemir 15 units subcu now and add every h.s. and put him on a sliding scale level 2 with a hypoglycemic protocol with fingerstick blood sugars a.c. and h.s., and we will check a blood sugar at 1 a.m. and cover if needed. The patient has never been diabetic previously according to discussion. If needed, we will alter and change his regimen to accommodate elevated glucoses. 2. Obstructive sleep apnea. Aware. He is on CPAP at home, and his CPAP will be continued at bedtime. 3. Hypertension. Aware. The patient does have a history of coronary artery disease, congestive heart failure. He is status post aortic valve repair and has a history of paroxysmal atrial fib. His medications and postop care or per Cardiology. 4. Hyperlipidemia. Aware. The patient will continue his Lipitor at bedtime. 5. BPH. Aware. The patient is continued on his Flomax every evening. 6. Chronic kidney disease stage 3. We are aware. His creatinine presently is 1.61 with a GFR around 52. On admission, his creatinine was 1.5, he is stable at present. We will continue to monitor his labs daily. 7. Labs for a.m. are BMP, CBC, magnesium, PT, portable chest x-ray, and hemoglobin A1c. The hospitalist group would like to thank you for this consultation. Let us know if we could be of further assistance. /DELIA Litzy Teran NP Consultation Report [address] [address] NAME: KEYLA CORDOBA : 51 STATUS : ADM IN PAT#: [id number] AGE: 60 ADM/REG DATE : 09/17/16 MR#: [id number] REPORT SERV DATE: 09/19/16 DICTATED BY: LITZY TERAN DATE: 09/18/16 REPORT STATUS : Draft TRANSCRIBED BY: DELIA DATE: 09/18/16 / [id number] CC: Jeancarlos Patterson M.D.
--- NOTE | ~2016-09-17 | OP ---
Record Of Operation [facility] [address] [place]. [address] NAME: KEYLA CORDOBA : 51 STATUS : ADM IN PAT#: [id number] AGE: 60 ADM/REG DATE : 09/17/16 MR#: [id number] REPORT SERV DATE: 09/18/16 DICTATED BY: DAVON BIRD DATE: 09/17/16 REPORT STATUS : Draft TRANSCRIBED BY: MODL DATE: 09/17/16 DATE OF PROCEDURE: 09/17/2016 PREOPERATIVE DIAGNOSES: 1. Aortic valve stenosis. 2. Chronic systolic heart failure (ejection fraction 30%). 3. Paroxysmal atrial fibrillation. 4. Morbid obesity (BMI greater than 40). 5. Polycythemia vera. 6. Right bundle-branch block with ventricular dyssynchrony. 7. Nwy-ixibskk-hdsusnmxw diabetes mellitus type 2. 8. Hypertension. 9. Obstructive sleep apnea. 10.Hypercholesterolemia. POSTOPERATIVE DIAGNOSES: 1. Aortic valve stenosis. 2. Chronic systolic heart failure (ejection fraction 30%). 3. Paroxysmal atrial fibrillation. 4. Morbid obesity (BMI greater than 40). 5. Polycythemia vera. 6. Right bundle-branch block with ventricular dyssynchrony. 7. Vwd-vkjhtsv-dmxumniig diabetes mellitus type 2. 8. Hypertension. 9. Obstructive sleep apnea. 10.Hypercholesterolemia. PROCEDURE PERFORMED: 1. Aortic valve replacement using a 29 mm pericardial valve (Trifecta). 2. Extensive left atrial maze procedure on cardiopulmonary bypass using radiofrequency ablation. Also left atrial appendage ligation and amputation. 3. Left ventricular epicardial lead placement and testing. 4. Transesophageal echocardiography. SURGEON: Davon Bird M.D. ASSISTANTS: Sol Cochran and Kye Damon. ANESTHESIA: General. Dr. Conti. INDICATIONS: This is a 60-year-old morbidly obese gentleman with multiple medical issues, increasing dyspnea, and fatigue. He recently came to the emergency room with shortness of breath and was noted to be in atrial fibrillation, and was cardioverted there. During his evaluation, he was found to have a heart murmur. An echocardiogram demonstrated aortic valve stenosis with a valve area of 0.8-0.9 cm2 and a peak gradient 61 mmHg. Subsequent cardiac catheterization demonstrated no surgically significant coronary artery disease. His Record Of Operation [facility] [address] [place]. [address] NAME: KEYLA CORDOBA : 51 STATUS : ADM IN PAT#: [id number] AGE: 60 ADM/REG DATE : 09/17/16 MR#: [id number] REPORT SERV DATE: 09/18/16 DICTATED BY: DAVON BIRD DATE: 09/17/16 REPORT STATUS : Draft TRANSCRIBED BY: MODL DATE: 09/17/16 ventricular function is moderately reduced with an ejection fraction of 30%. The patient was diuresed aggressively and feels much better. Had a LifeVest external defibrillator placed at time of this previous hospitalization and he was eventually discharged home. We saw the patient in our office and discussed possible aortic valve replacement along with left atrial maze procedure and consideration for placement of epicardial LV lead for pacing. After lengthy discussion of operation, its indication and risks with he and his family, they wished to proceed. STS predicted risk of mortality was approximately 2.5% and morbidity mortality 21% and this was shared with the family. FINDINGS AT OPERATION: 1. Cross-clamp 87 minutes, total pump time 160 minutes. Custodiol solution was utilized as crystalloid cardioplegia. 2. The aortic valve was tricuspid and was very heavily calcified. There was fusion of the right and left cusps with three commissural posts. The coronary anatomy was normal. There was no aortic root dilatation. 3. The aortic valve was replaced with a 29 mm pericardial valve and 20 Cor-Knots were used to secure this in place. This was a Trifecta valve. 4. Extensive left atrial maze procedure performed using AtriCure bipolar clamp and pen. Exit and entrance block testing was performed and confirmed. 5. Left atrial appendage was ligated and amputated at the base using thoracoscopic stapler and a 60 mm purple staple load. 6. An epicardial lead was placed in the lateral wall of left ventricle near the base. This was a Medtronic lead model #4968, serial #[id number]. Measured R-wave amplitude was 6.1 mV. Minimum threshold of pacing was 1 V. An impedance was 1049 ohms. This lead was brought through the chest wall and placed in a subcutaneous pocket inferior to the lateral one third of the clavicle. 7. KHUSHBOO at the end of the operation demonstrated improved ventricular function with inotrope. The aortic prosthesis was well seated without perivalvular leak. There was no significant mitral valve insufficiency. PATHOLOGIC SPECIMENS: Include left atrial appendage and aortic valve tissue. DESCRIPTION OF PROCEDURE: The patient was brought to the operating suite. General anesthesia was induced. Airway secured with an endotracheal tube. Lines secured by Anesthesia. Chand catheter was placed. The patient's chest, abdomen, groin, and legs prepped with Hibiclens and ChloraPrep and draped with Ioban sterile sheets. KHUSHBOO probe was placed by Dr. Conti and examination carried out in my attendance as discussed above. A midline sternal incision was made and the sternum opened with a saw. Lines were passed from the field for cardiopulmonary bypass and cleared of air. The pericardium was opened from the innominate vein. The diaphragm was T'd and tacked to the side of the chest wall. Heparin was administered by Anesthesia. Cannulation pursestring sutures were placed and cannulation was carried out in routine manner. When all was in readiness, the patient was placed on cardiopulmonary bypass. Next, most of the maze procedure was on the left atrium was carried out. Circumferential Record Of Operation [facility] [address] [facility] [place]. [address] NAME: KEYLA CORDOBA : 51 STATUS : ADM IN PAT#: [id number] AGE: 60 ADM/REG DATE : 09/17/16 MR#: [id number] REPORT SERV DATE: 09/18/16 DICTATED BY: DAVON BIRD DATE: 09/17/16 REPORT STATUS : Draft TRANSCRIBED BY: DELIA DATE: 09/17/16 dissection around the confluence of pulmonary veins was performed first. Then, using the AtriCure pen, bipolar testing of the each of the pulmonary veins was carried out for pacing and sensing. Then, using the AtriCure bipolar RF clamp, pulmonary vein isolation was performed and then these were tested again to ensure completeness of ablation. In addition, the lesion was placed at the base of the left atrial appendage and connecting lesion between this and the left pulmonary vein isolation site. The aorta was cross-clamped and an initial and only dose of cold crystalloid cardioplegia was given using a prison solution in an antegrade fashion. An LV vent was placed to the right superior pulmonary vein and directed in the left ventricle through the mitral valve and secured. Following the first dose and only dose of cardioplegia, we continued with the maze procedure. The heart was gently rotated towards the surgeon. The left atrial appendage was grasped and it was ligated and amputated at its base using thoracoscopic stapler and 60 mm purple staple load. Then, the interatrial groove of [place] was dissected. A left atriotomy was made. Superior and inferior dome lesions were then created using the AtriCure bipolar clamp. No mitral valve lesion was created in this patient. Then, the left atriotomy was closed in a two-layer fashion with running pledgeted suture of 4-0 Prolene. We then turned our attention towards the aortic valve. A hockey-stick type aortotomy incision made just above the sinotubular junction. The aortic valve was inspected. It was a bicuspid valve with fusion of the right and left coronary cusps. There were three commissural posts. Coronary anatomy was normal and the root was not aneurysmal. The aortic valve was excised. It was heavily calcified. The annulus debrided of all calcific material. We then irrigated the left ventricle and ascending aorta copiously, removed any particulate matter. The valve was sized and a 29 mm pericardial valve was selected. Interrupted pledgeted sutures of 2-0 Tycron were placed circumferentially about the aortic valve annulus in a horizontal mattress fashion. Pledgets were on the ventricular side. The sutures were passed through the sewing cuff of the prosthetic valve. This was lowered into position each sutures individually, secured and divided using a Cor-Knot device. A total of 20 Cor-Knots were used to secure the valve in place. Following implantation, the valve appeared to be well seated and both right and left main coronary ostia without obstruction. Warming was begun. The aortotomy incision was then closed in a two-layer fashion with running pledgeted suture of 5-0 Prolene. The patient was placed in Trendelenburg. The left ventricle and ascending aorta de-aired. Following de-airing, the aortic cross-clamp was removed. The heart was again gently rotated toward the surgeon and the Medtronic epicardial ventricular leads were brought up to the field. These were placed on the surface of the heart. Once heart resumed a paced junctional rhythm, testing of the leads was carried out with the certified health education specialist and the leads were found to be acceptable. Temporary ventricular and atrial pacing wires were also placed. Ventilation was begun and pacing in AV sequential fashion was carried out when inotropic agents were started by Anesthesia. After short rest on the bypass pump, the heart was allowed to fill and eject. De-airing was monitored with KHUSHBOO. When deairing was completed, Record Of Operation [facility] [address] [place]. [address] NAME: KEYLA CORDOBA : 51 STATUS : ADM IN PAT#: [id number] AGE: 60 ADM/REG DATE : 09/17/16 MR#: [id number] REPORT SERV DATE: 09/18/16 DICTATED BY: DAVON BIRD DATE: 09/17/16 REPORT STATUS : Draft TRANSCRIBED BY: MODL DATE: 09/17/16 the LV vent was removed and these pursestring sutures tied. The ascending aortic vent was removed and these pursestring sutures tied and reinforced. The patient was weaned from cardiopulmonary bypass with inotropic support. The venous cannulas were removed and these pursestring sutures tied. KHUSHBOO examination demonstrated improved ventricular function with a well-seated aortic valve prosthesis and no perivalvular leak. Protamine was administered by Anesthesia and following a period of hemodynamic stability, the aortic cannula was removed and these pursestring sutures tied and reinforced. The patient continued to do well and chest irrigated copiously with saline. Meticulous hemostasis was obtained. Hemasorb was placed along the cut edge of the sternum. Once hemostasis was assured, the pericardium was draped over the anterior surface of the heart and tacked into position. The epicardial LV lead was brought through the 3rd intercostal space and then tunneled in the subcutaneous tissue to the lateral one third of the clavicle where a pocket was created in subcutaneous space just inferior to the clavicle and the lead was left in this position. This incision was later closed. The chest was again irrigated with saline. Chest tubes were then placed and the pericardium draped over the anterior surface of the heart and tacked in position. The sternum was reapproximated with 8 sternal wires. The clavipectoral fascia and linea alba were closed with #1 Stratafix. The subcutaneous tissue was closed with Stratafix and skin closed in subcuticular fashion. The patient tolerated the procedure well. There were no complications. Sponge and needle counts were correct. DISPOSITION: The patient was left intubated, sedated, and transported to the intensive care unit in stable condition. EZEKIEL/DELIA Davon Bird M.D. / [id number] CC: Jeancarlos Patterson M.D.
--- NOTE | ~2016-09-17 | DS ---
Discharge Summary [facility] [address] [place]. [address] NAME: KEYLA CORDOBA : 51 STATUS : DIS IN PAT#: [id number] AGE: 61 ADM/REG DATE : 09/17/16 MR#: [id number] REPORT SERV DATE: 11/26/16 DICTATED BY: KAILYN IQBAL DATE: 11/25/16 REPORT STATUS : Draft TRANSCRIBED BY: MODKeiko DATE: 11/25/16 ADMISSION DATE: 09/17/2016 DISCHARGE DATE: 09/24/2016 DIAGNOSES AT THE TIME OF DISCHARGE: 1. Aortic valve stenosis. 2. Chronic systolic heart failure with ejection fraction of 30%. 3. Paroxysmal atrial fibrillation. 4. Morbid obesity. 5. Polycythemia vera. 6. Right bundle branch block with ventricular dyssynchrony. 7. Type 2 diabetes mellitus, non-insulin dependent. 8. Hypertension. 9. Obstructive sleep apnea. 10.Hypercholesterolemia. PROCEDURES: 1. On 09/17/2016 include aortic valve replacement using a 29 mm pericardial valve. 2. Extensive left atrial maze procedure on cardiopulmonary bypass using radiofrequency ablation and ligation of left atrial appendage. 3. Left ventricular epicardial lead placement in testing. 4. Transesophageal echocardiogram intraoperatively. MEDICATIONS AT THE TIME OF DISCHARGE: Include: 1. Aspirin 81 mg once daily. 2. Jantoven 3 mg daily. 3. Magnesium oxide 400 mg twice daily. 4. Metoprolol 25 mg twice daily. 5. Multivitamin one tab daily. 6. Potassium chloride one tab daily. 7. Spironolactone 25 mg daily. 8. Tamsulosin 0.4 mg at bedtime. 9. Torsemide 20 mg once daily. 10.Vitamin D 1000 units once daily. CONDITION ON DISCHARGE: Stable. DISPOSITION: The patient was discharged to home. HOSPITAL COURSE: The patient was admitted to [facility] on 09/17/2016 and underwent aortic valve replacement with pericardial valve, left atrial maze procedure with ligation of the left atrial appendage, left ventricular epicardial lead placement in testing, and a transesophageal echocardiogram intraoperatively. On completion of surgery, the patient was admitted to the Cardiovascular Intensive Care Unit and was observed there for 48 hours. He was then transferred to the cardiothoracic step-down unit on 09/20/2016 and resided in room #[id number] until his discharge on 09/24/2016. The patient did ambulate with cardiac rehab while Discharge Summary [facility] [address] [place]. [address] NAME: KEYLA CORDOBA : 51 STATUS : DIS IN PAT#: [id number] AGE: 61 ADM/REG DATE : 09/17/16 MR#: [id number] REPORT SERV DATE: 11/26/16 DICTATED BY: KAILYN IQBAL DATE: 11/25/16 REPORT STATUS : Draft TRANSCRIBED BY: DELIA DATE: 11/25/16 he was on the floor. He did have an echocardiogram while after the procedure that demonstrated an improved systolic ejection fraction to 40% that showed improvement. This test was done on 09/23/2016. Therefore, his ejection fraction improved postoperatively. The patient was discharged on 09/24/2016 and was instructed to follow a low-sodium diet. He was also started on Coumadin while inpatient and had appropriate followup two days post discharge at the [facility] for PT/INR monitoring. This appointment was scheduled for him at the [facility] office on 09/27/2016. The patient will also follow with SARAHY Medina, on 11/14/2016 at 1:30 p.m. 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 Tylor Dueñas on 10/18/2016 at 10:45 a.m. He will also see his primary care provider, Kye Michaels M.D., 7 to 10 days following post discharge. His diabetes was managed by the Hospitalist Service while he was inpatient. He was instructed to not lift anything greater than 10 pounds or a gallon of milk and to not to drive until he returned to see Venu Murphy as scheduled. DEONTE/DELIA Kailyn Iqbal NP / [id number] CC: Jeancarlos Patterson M.D.
--- NOTE | ~2016-09-17 | HP ---
History And Physical [facility] [id number] [place]. [address] NAME: KEYLA CORDOBA : 51 STATUS : DIS IN PAT#: [id number] AGE: 61 ADM/REG DATE : 09/17/16 MR#: [id number] REPORT SERV DATE: 11/26/16 DICTATED BY: DAVON BIRD DATE: 11/25/16 REPORT STATUS : Draft TRANSCRIBED BY: MODL DATE: 11/25/16 DATE OF ADMISSION: 09/17/2016 CHIEF COMPLAINT: Tightness across the upper abdomen with exertion, dyspnea on exertion, and fatigue. HISTORY OF PRESENT ILLNESS: Mr. Cordoba is a 60-year-old white male, who, prior to being seen in the office, had been seen in the emergency room for shortness of breath. At this time, he was noted to have atrial fibrillation and underwent synchronized cardioversion. He was noted to have a heart murmur on physical exam and an echocardiogram demonstrated significant aortic valve stenosis with aortic valve area 0.9 centimeter squared and a peak gradient of 61 mmHg. He underwent cardiac catheterization that showed no evidence of coronary artery disease. He was noted to have a ventricular systolic ejection fraction of 30% to 35%. He was seen by Dr. Dueñas, and it was recommended that the patient see Dr. Bird in the office for evaluation of possible aortic valve replacement with a Covarrubias maze procedure. The patient stated in the office that after cardioversion, he underwent aggressive diuresis and has lost a total of 270 pounds, and currently weighs 260 pounds. He was wearing, on the last test, an external stimulator at the time of exam. The patient does complain of a bandlike tightness across his abdomen, which occurs with exertion. This has improved with diuresis. He has had significant dyspnea on exertion, which has improved with diuresis. He denies any history of stroke or TIA-like symptoms. He does have problems with syncope, postural dizziness, and does admit to having significant fatigue. PAST MEDICAL HISTORY: Significant for: 1. Coagulopathy, polycythemia vera. 2. Aortic stenosis. 3. Systolic heart failure. 4. PFO. 5. Atrial fib. 6. Obesity. 7. Obstructive sleep apnea with CPAP use. 8. Right bundle-branch block. 9. Hypertension. 10.Diabetes and BPH. FAMILY HISTORY: Includes father significant for diabetes, hypertension, and hyperlipidemia, who at the age of 66 related to his longstanding history of hypertension. His mother is noted to have a history of cardiac arrhythmia, diabetes mellitus, congestive heart failure, myocardial infarction, hyperlipidemia, hypertension, and his mother at age 90 due to myocardial infarction. His sister is noted to have a history of hypertension, diabetes, and hyperlipidemia. SOCIAL HISTORY: The patient states that he was never a smoker or used alcohol or illicit drugs. ALLERGIES: HE HAS NO KNOWN ALLERGIES. History And Physical [address] [address] NAME: KEYLA CORDOBA : 51 STATUS : DIS IN PAT#: [id number] AGE: 61 ADM/REG DATE : 09/17/16 MR#: [id number] REPORT SERV DATE: 11/26/16 DICTATED BY: DAVON BIRD DATE: 11/25/16 REPORT STATUS : Draft TRANSCRIBED BY: DELIA DATE: 11/25/16 MEDICATIONS: Include: 1. Amiodarone 400 mg two tablets b.i.d. 2. Aspirin 81 mg daily. 3. Atorvastatin 40 mg at bedtime. 4. Eliquis 5 mg twice daily. 5. Magnesium oxide 400 mg twice daily. 6. Metoprolol 50 mg extended release once daily. 7. Multivitamin one tablet daily. 8. Potassium chloride 20 mEq once daily. 9. Spironolactone 25 mg once daily. 10.Tamsulosin 0.4 mg at bedtime. 11.Telmisartan 20 mg at bedtime. 12.Torsemide 20 mg once daily. 13.Vitamin D3 at 1000 units once daily. REVIEW OF SYSTEMS: CONSTITUTIONAL: Negative for weight gain, weight loss, or fever. EYES: Negative for acute visual changes. ENT: Negative for hearing loss. RESPIRATORY: Negative for snoring, hemoptysis, or dyspnea. CARDIOLOGY: Negative for chest pain, diaphoresis, orthopnea, palpitations. He does have a negative first set syncope, paroxysmal nocturnal dyspnea. VASCULAR: Negative for claudication, but is positive for bilateral lower extremity edema. GI: Negative for nausea, reflux, or bleeding. : Negative for hematuria, but positive for nocturia. ENDOCRINE: Negative for goiter or tremors. NEURO: Negative for dizziness, memory loss, or seizures. PSYCHIATRIC: Negative for depression or hallucination. SKIN: Negative for rash or skin sores. MUSCULOSKELETAL: Negative for joint pain or myalgias. HEMATOLOGY: Negative for acute anemia or thrombocytopenia. PHYSICAL EXAMINATION: VITAL SIGNS: Include a heart rate of 69, blood pressure of 106/64, his current weight is 258 pounds, height 71 inches, and his BMI is 35.9. CONSTITUTIONAL: Negative for distress. He is well nourished and well developed. HEENT: His eyes, he has bilateral normal conjunctivae and sclerae, and pupils are equal, round, and reactive to light. His nose, mouth, and throat demonstrates pink oral mucosa without any cyanosis or pallor. NECK: Demonstrates no masses or altered range of motion. There is no evidence of jugular vein distention. RESPIRATORY: His breaths are nonlabored and he is clear bilaterally without any evidence of rales, wheezes, or rhonchi. CARDIAC: He has regular rate and rhythm with S1, S2. He does have a 3/4 systolic ejection murmur heard at the right upper sternal border. VASCULAR: His carotids are without bruit. He has bilateral normal pedal pulses. History And Physical [address] [address] NAME: KEYLA CORDOBA : 51 STATUS : DIS IN [facility]#: [id number] AGE: 61 ADM/REG DATE : 09/17/16 MR#: [id number] REPORT SERV DATE: 11/26/16 DICTATED BY: DAVON BIRD DATE: 11/25/16 REPORT STATUS : Draft TRANSCRIBED BY: DELIA DATE: 11/25/16 ABDOMEN: Soft, round, and nontender without any hepatomegaly or splenomegaly. He has active bowel sounds. SKIN: Warm and dry without any evidence of venous stasis ulcers or rashes. MUSCULOSKELETAL: He has normal gait and is able to exercise. EXTREMITIES: No evidence of lower extremity edema. NEUROLOGICAL: He is alert and oriented x3 and has appropriate mood and affect. IMPRESSION: 1. Nonrheumatic aortic valve stenosis. 2. Atrial fibrillation. 3. Chronic systolic heart failure. 4. Atrial septal defect. 5. Type 2 diabetes mellitus. 6. Right bundle-branch block. 7. Polycythemia vera. 8. Obstructive sleep apnea. 9. Benign prostatic hyperplasia. 10.Coagulation defect. PLAN: The patient is a 60-year-old morbidly obese gentleman with significant aortic valve stenosis and nonischemic cardiomyopathy. He has had a recent onset of paroxysmal atrial fib and has been cardioverted successfully. The patient will be scheduled for an aortic valve replacement, ligation of the left atrial appendage, left ventricular epicardial lead placement, and a transesophageal echocardiogram. This procedure has been discussed with the patient as well as his complication. At this time, the patient has STS risk for morbidity at 21% and a 2.5% risk of mortality. These risks were discussed with the patient and the family. They understand the operation, alternatives, and risks that include: Bleeding, infection, pneumonia, blood transfusion, liver and kidney damage, arrhythmia, need for pacemaker, heart attack, stroke, mediastinitis, DVT with pulmonary emboli and among others, and wishes to proceed. The patient will also have a carotid ultrasound to assess for left carotid bruit and the, the surgery has been scheduled for 09/17/2016 as stated. DICTATED BY: NEO Mensah/DELIA Davon Bird M.D. / [id number] CC: Jeancarlos Patterson M.D.
[~2016-09-17 10:27] MED LIST changes: +ELIQUIS 5 MG TAB5 MG PO; +PACERONE200 MG PO; +TOPXL50 PO
[2016-09-17 18:18] LABS: BE (BASE EXCESS) -2.7 MEQ/L (0 +/- 2.5); CARBOXYHEMOGLOBIN 0.1 % (0-3); HCO3 (ACTUAL BICARBONATE) 22.5 MEQ/L (23-27); HEMOBLOGIN CONTENT 12.5 G/DL (14-18); INSTRUMENT SERIAL # 11843; METHEMOGLOBIN 0.5 % (0-3); MODE SIMV; O2 CONTENT 17.8 VOL% (18-24); OPERATOR ID 18642; PCO2 (CO2 TENSION) 40 MMHG (35-45); PO2 (O2 TENSION) 244 MMHG (79-93); PRESSURE SUPPORT 0 cm.H2O; SAMPLE Arterial; TIDAL VOLUME 700 ML; pH 7.36 (7.37-7.43)
[2016-09-17 18:33] LABS: MEAN CORPUS HGB CONC 34.4 g/dL (32.0-36.0); MEAN CORPUSCULAR HEMOGLOB 32.2 pg (26.0-34.0); MEAN CORPUSCULAR VOLUME 93.6 fL (80-100); MEAN PLATELET VOLUME 9.8 fL (9.2-13.0); PLATELET COUNT 113 10/3/uL (150-400); RBC DISTRIBUTION WIDTH 14.3 % (12.0-16.0)
[2016-09-17 18:41] LABS: HEMATOCRIT 35.2 % (40.0-51.0); HEMOGLOBIN 12.1 g/dL (13.6-17.8); MANUAL DIFF YES %; RED CELL COUNT 3.76 10/6/uL (4.7-6.1)
[2016-09-17 18:46] LABS: INTERNATIONAL NORMAL RATI 1.6 UNITS (-); PARTIAL THROMBO TIME 29.2 SEC (22.5-37.2); PROTIME (NOT ORD) 18.8 SEC (12.0-14.5)
[2016-09-17 18:47] LABS: BUN (BLOOD UREA NITROGEN) 29 MG/DL (6-23); CALCIUM, SERUM 9.6 MG/DL (8.5-10.4); CHLORIDE, SERUM 108 MMOL/L (96-112); CREATININE 1.72 MG/DL (0.70-1.30); GFR AFRICAN AMERICAN 48 ML/MIN (>=60); GFR NON AFRICAN AMERICAN 42 ML/MIN (>=60); SODIUM, SERUM 140 MMOL/L (135-148)
[2016-09-17 18:51] LABS: BAND NEUTROPHILS 8 %; CO2 (CARBON DIOXIDE) 26 MMOL/L (24-34); GLUCOSE, SERUM 133 MG/DL (60-99); LYMPHOCYTES 15 %; LYMPHOCYTES ABSOLUTE (CALC) 2.85 10/3/uL (0.67-4.30); NEUTROPHILS ABSOLUTE (CALC) 16.15 10/3/uL (2.02-8.40); PLATELET ESTIMATE SLT DEC (ADEQUATE); POTASSIUM, SERUM 4.4 MMOL/L (3.5-5.3); RBC MORPHOLOGY NORM (NORMAL); SEGMENTED NEUTROPHIL (0) 77 %; TOTAL NUCLEATED CELLS 100
[2016-09-17 23:03] LABS: BE (BASE EXCESS) -3.6 MEQ/L (0 +/- 2.5); CARBOXYHEMOGLOBIN 0.3 % (0-3); DEVICE NC; HCO3 (ACTUAL BICARBONATE) 22.1 MEQ/L (23-27); HEMOBLOGIN CONTENT 13.3 G/DL (14-18); INSTRUMENT SERIAL # 11843; METHEMOGLOBIN 0.5 % (0-3); O2 CONTENT 18.4 VOL% (18-24); OPERATOR ID 32193; PCO2 (CO2 TENSION) 43 MMHG (35-45); PO2 (O2 TENSION) 147 MMHG (79-93); SAMPLE Arterial; pH 7.33 (7.37-7.43)
[2016-09-17 23:43] LABS: HEMATOCRIT 36.3 % (40.0-51.0); HEMOGLOBIN 12.6 g/dL (13.6-17.8); MANUAL DIFF YES %; MEAN CORPUS HGB CONC 34.7 g/dL (32.0-36.0); MEAN CORPUSCULAR HEMOGLOB 32.7 pg (26.0-34.0); MEAN CORPUSCULAR VOLUME 94.3 fL (80-100); MEAN PLATELET VOLUME 9.8 fL (9.2-13.0); PLATELET COUNT 106 10/3/uL (150-400); RED CELL COUNT 3.85 10/6/uL (4.7-6.1)
[2016-09-17 23:58] LABS: BUN (BLOOD UREA NITROGEN) 34 MG/DL (6-23); CALCIUM, SERUM 8.8 MG/DL (8.5-10.4); CHLORIDE, SERUM 113 MMOL/L (96-112); CO2 (CARBON DIOXIDE) 26 MMOL/L (24-34); CREATININE 1.59 MG/DL (0.70-1.30); GFR AFRICAN AMERICAN 53 ML/MIN (>=60); GFR NON AFRICAN AMERICAN 46 ML/MIN (>=60); GLUCOSE, SERUM 92 MG/DL (60-99); POTASSIUM, SERUM 4.1 MMOL/L (3.5-5.3); SODIUM, SERUM 144 MMOL/L (135-148)
[2016-09-18 00:01] LABS: BAND NEUTROPHILS 10 %; LYMPHOCYTES 8 %; LYMPHOCYTES ABSOLUTE (CALC) 1.44 10/3/uL (0.67-4.30); MONOCYTES 10 %; NEUTROPHILS ABSOLUTE (CALC) 14.76 10/3/uL (2.02-8.40); PLATELET ESTIMATE SLT DEC (ADEQUATE); RBC MORPHOLOGY NORM (NORMAL); SEGMENTED NEUTROPHIL (0) 72 %; TOTAL NUCLEATED CELLS 100
[2016-09-18 04:58] LABS: BASOPHILS 0 %; EOSINOPHILS 0 %; HEMATOCRIT 35.5 % (40.0-51.0); HEMOGLOBIN 12.3 g/dL (13.6-17.8); IMMATURE GRANULOCYTES 0.3 %; IMMATURE GRANULOCYTES ABSOLUTE 0.05 10/3/uL (0.0-0.11); LYMPHOCYTES 3.9 %; LYMPHOCYTES ABSOLUTE 0.72 10/3/uL (0.67-4.30); MEAN CORPUS HGB CONC 34.6 g/dL (32.0-36.0); MEAN CORPUSCULAR HEMOGLOB 32.6 pg (26.0-34.0); MEAN CORPUSCULAR VOLUME 94.2 fL (80-100); MONOCYTES 6.5 %; MONOCYTES ABSOLUTE 1.19 10/3/uL (0.21-1.20); NEUTROPHILS 89.3 %; NEUTROPHILS ABSOLUTE 16.43 10/3/uL (2.02-8.40); PLATELET COUNT 111 10/3/uL (150-400); RED CELL COUNT 3.77 10/6/uL (4.7-6.1); WHITE BLOOD CELLS 18.4 10/3/uL (4.5-10.5)
[2016-09-18 04:59] LABS: MANUAL DIFF NO %
[2016-09-18 05:03] LABS: INTERNATIONAL NORMAL RATI 1.2 UNITS (-)
[2016-09-18 05:04] LABS: PROTIME (NOT ORD) 15.4 SEC (12.0-14.5)
[2016-09-18 05:11] LABS: BUN (BLOOD UREA NITROGEN) 35 MG/DL (6-23); CALCIUM, SERUM 8.9 MG/DL (8.5-10.4); CHLORIDE, SERUM 111 MMOL/L (96-112); CO2 (CARBON DIOXIDE) 23 MMOL/L (24-34); CREATININE 1.61 MG/DL (0.70-1.30); GFR AFRICAN AMERICAN 52 ML/MIN (>=60); GFR NON AFRICAN AMERICAN 45 ML/MIN (>=60); GLUCOSE, SERUM 89 MG/DL (60-99); POTASSIUM, SERUM 4.4 MMOL/L (3.5-5.3); SODIUM, SERUM 143 MMOL/L (135-148)
[2016-09-18 18:28] LABS: HEMATOCRIT 32.2 % (40.0-51.0); POTASSIUM, SERUM 4.9 MMOL/L (3.5-5.3)
[2016-09-19 03:33] LABS: BASOPHILS 0 %; EOSINOPHILS 0 %; HEMATOCRIT 30.1 % (40.0-51.0); HEMOGLOBIN 10.7 g/dL (13.6-17.8); IMMATURE GRANULOCYTES 0.4 %; IMMATURE GRANULOCYTES ABSOLUTE 0.08 10/3/uL (0.0-0.11); LYMPHOCYTES 10.2 %; LYMPHOCYTES ABSOLUTE 2.18 10/3/uL (0.67-4.30); MANUAL DIFF NO %; MEAN CORPUS HGB CONC 35.5 g/dL (32.0-36.0); MEAN CORPUSCULAR HEMOGLOB 33.6 pg (26.0-34.0); MEAN CORPUSCULAR VOLUME 94.7 fL (80-100); MONOCYTES 12.1 %; MONOCYTES ABSOLUTE 2.59 10/3/uL (0.21-1.20); NEUTROPHILS 77.3 %; NEUTROPHILS ABSOLUTE 16.55 10/3/uL (2.02-8.40); PLATELET COUNT 84 10/3/uL (150-400); RBC DISTRIBUTION WIDTH 14.4 % (12.0-16.0); RED CELL COUNT 3.18 10/6/uL (4.7-6.1); WHITE BLOOD CELLS 21.4 10/3/uL (4.5-10.5)
[2016-09-19 03:35] LABS: INTERNATIONAL NORMAL RATI 1.4 UNITS (-)
[2016-09-19 03:43] LABS: BUN (BLOOD UREA NITROGEN) 34 MG/DL (6-23); CALCIUM, SERUM 8.7 MG/DL (8.5-10.4); CHLORIDE, SERUM 107 MMOL/L (96-112); CO2 (CARBON DIOXIDE) 24 MMOL/L (24-34); CREATININE 1.36 MG/DL (0.70-1.30); GFR AFRICAN AMERICAN 64 ML/MIN (>=60); GFR NON AFRICAN AMERICAN 55 ML/MIN (>=60); GLUCOSE, SERUM 142 MG/DL (60-99); POTASSIUM, SERUM 5.3 MMOL/L (3.5-5.3); SODIUM, SERUM 138 MMOL/L (135-148)
[2016-09-19 05:43] LABS: PROCALCITONIN 0.82 ng/mL (<0.5)
[2016-09-20 03:31] LABS: BASOPHILS 0.1 %; BASOPHILS ABSOLUTE 0.01 10/3/uL (0.0-0.16); EOSINOPHILS 0.1 %; EOSINOPHILS ABSOLUTE 0.01 10/3/uL (0.0-0.53); HEMATOCRIT 29.4 % (40.0-51.0); HEMOGLOBIN 10.2 g/dL (13.6-17.8); IMMATURE GRANULOCYTES 0.6 %; IMMATURE GRANULOCYTES ABSOLUTE 0.11 10/3/uL (0.0-0.11); LYMPHOCYTES 15.5 %; MANUAL DIFF NO %; MEAN CORPUS HGB CONC 34.7 g/dL (32.0-36.0); MEAN CORPUSCULAR VOLUME 95.1 fL (80-100); MEAN PLATELET VOLUME 10.3 fL (9.2-13.0); MONOCYTES 9.3 %; MONOCYTES ABSOLUTE 1.61 10/3/uL (0.21-1.20); NEUTROPHILS 74.4 %; NEUTROPHILS ABSOLUTE 12.93 10/3/uL (2.02-8.40); PLATELET COUNT 77 10/3/uL (150-400); RBC DISTRIBUTION WIDTH 14.6 % (12.0-16.0); RED CELL COUNT 3.09 10/6/uL (4.7-6.1); WHITE BLOOD CELLS 17.4 10/3/uL (4.5-10.5)
[2016-09-20 03:40] LABS: INTERNATIONAL NORMAL RATI 1.3 UNITS (-); PROTIME (NOT ORD) 16.1 SEC (12.0-14.5)
[2016-09-20 03:44] LABS: CALCIUM, SERUM 8.6 MG/DL (8.5-10.4); CHLORIDE, SERUM 105 MMOL/L (96-112); CO2 (CARBON DIOXIDE) 27 MMOL/L (24-34); CREATININE 1.09 MG/DL (0.70-1.30); GFR AFRICAN AMERICAN 84 ML/MIN (>=60); GFR NON AFRICAN AMERICAN 72 ML/MIN (>=60); GLUCOSE, SERUM 140 MG/DL (60-99); POTASSIUM, SERUM 4.6 MMOL/L (3.5-5.3); SODIUM, SERUM 139 MMOL/L (135-148)
[2016-09-20 03:49] LABS: BUN (BLOOD UREA NITROGEN) 25 MG/DL (6-23); PLATELET ESTIMATE DEC (ADEQUATE); RBC MORPHOLOGY NORM (NORMAL)
[2016-09-21 05:27] LABS: INTERNATIONAL NORMAL RATI 1.3 UNITS (-); PROTIME (NOT ORD) 16.5 SEC (12.0-14.5)
[2016-09-21 05:28] LABS: HEMATOCRIT 26.6 % (40.0-51.0); HEMOGLOBIN 9.2 g/dL (13.6-17.8); MEAN CORPUS HGB CONC 34.6 g/dL (32.0-36.0); MEAN CORPUSCULAR VOLUME 95.3 fL (80-100); MEAN PLATELET VOLUME 10.2 fL (9.2-13.0); PLATELET COUNT 75 10/3/uL (150-400); RBC DISTRIBUTION WIDTH 14.7 % (12.0-16.0); RED CELL COUNT 2.79 10/6/uL (4.7-6.1); WHITE BLOOD CELLS 13.1 10/3/uL (4.5-10.5)
[2016-09-21 05:29] LABS: MANUAL DIFF YES %
[2016-09-21 05:32] LABS: BUN (BLOOD UREA NITROGEN) 24 MG/DL (6-23); CALCIUM, SERUM 8.3 MG/DL (8.5-10.4); CHLORIDE, SERUM 104 MMOL/L (96-112); CO2 (CARBON DIOXIDE) 28 MMOL/L (24-34); GFR AFRICAN AMERICAN 93 ML/MIN (>=60); GFR NON AFRICAN AMERICAN 80 ML/MIN (>=60); SGOT(AST) 24 U/L (5-40); SGPT(ALT) 18 U/L (5-65); SODIUM, SERUM 137 MMOL/L (135-148); TOTAL BILIRUBIN 0.9 MG/DL (0-1.2)
[2016-09-21 05:34] LABS: ALBUMIN 2.7 G/DL (3.5-5.0); ALKALINE PHOSPHATASE 55 U/L (45-117); DIRECT BILIRUBIN 0.2 MG/DL (0.0-0.4); GLUCOSE, SERUM 108 MG/DL (60-99); INDIRECT BILIRUBIN(NOT ORDER) 0.7 MG/DL (0.1-0.9)
[2016-09-21 05:42] LABS: BAND NEUTROPHILS 1 %; EOSINOPHILS 1 %; EOSINOPHILS ABSOLUTE (CALC) 0.13 10/3/uL (0.0-0.53); IMMATURE GRANS ABSOLUTE (CALC) 0.13 10/3/uL (0.0-0.11); LYMPHOCYTES 8 %; LYMPHOCYTES ABSOLUTE (CALC) 1.05 10/3/uL (0.67-4.30); METAMYELOCYTES 1 %; MONOCYTES 7 %; MONOCYTES ABSOLUTE (CALC) 0.92 10/3/uL (0.21-1.20); NEUTROPHILS ABSOLUTE (CALC) 10.87 10/3/uL (2.02-8.40); PLATELET ESTIMATE DEC (ADEQUATE); RBC MORPHOLOGY NORM (NORMAL); SEGMENTED NEUTROPHIL (0) 82 %; TOTAL NUCLEATED CELLS 100
[2016-09-22 04:57] LABS: INTERNATIONAL NORMAL RATI 1.5 UNITS (-)
[2016-09-23 05:37] LABS: INTERNATIONAL NORMAL RATI 2.1 UNITS (-)
[2016-09-23 06:06] LABS: PROTIME (NOT ORD) 23.4 SEC (12.0-14.5)
[2016-09-24 06:21] LABS: INTERNATIONAL NORMAL RATI 2.5 UNITS (-); PROTIME (NOT ORD) 26.4 SEC (12.0-14.5)
[2016-09-24] MEDS ORDERED: LOP25 PO (14:53)
[2016-09-24] MEDS ORDERED: C2 PO (15:19)
[2016-09-24] MEDS ORDERED: PERCOCET 10/3251 TAB PO (15:19)
== END 2016-09-24 17:03 | disposition home or self-care (01) | DRG 220 ==
LOC: SDC/OF 10:27 → CVICU 16:07 → 5NO 09-20 11:24
PROVIDERS: Nurse Practitioner Family; Thoracic Surgery (Cardiothoracic Vascular Surgery)
PROC: 5A1221Z Performance of Cardiac Output, Continuous (ICD-10-PCS; 2016-09-17)
PROC: B246ZZ4 Ultrasonography of Right and Left Heart, Transesophageal (ICD-10-PCS; 2016-09-17)
PROC: 02L70CK Occlusion of Left Atrial Appendage with Extraluminal Device, Open Approach (ICD-10-PCS; 2016-09-17)
PROC: 02RF08Z Replacement of Aortic Valve with Zooplastic Tissue, Open Approach (ICD-10-PCS; principal; 2016-09-17 13:00)
PROC: 02580ZZ Destruction of Conduction Mechanism, Open Approach (ICD-10-PCS; 2016-09-17 13:00)
PROC: 02H Heart and Great Vessels, Insertion (ICD-10-PCS; 2016-09-17 13:00)
DX: I35.0 Nonrheumatic aortic (valve) stenosis (principal); I50.22 Chronic systolic (congestive) heart failure; Z68.41 Body mass index [BMI] 40.0-44.9, adult; N17.9 Acute kidney failure, unspecified; N18.3 Chronic kidney disease, stage 3 (moderate); E11.22 Type 2 diabetes mellitus with diabetic chronic kidney disease; I13.0 Hypertensive heart and chronic kidney disease with heart failure and stage 1 through stage 4 chronic kidney disease, or unspecified chronic kidney disease; I48.0 Paroxysmal atrial fibrillation; G47.33 Obstructive sleep apnea (adult) (pediatric); D45 Polycythemia vera; E66.01 Morbid (severe) obesity due to excess calories; E78.00 Pure hypercholesterolemia, unspecified; I45.10 Unspecified right bundle-branch block; N40.0 Benign prostatic hyperplasia without lower urinary tract symptoms; Z79.82 Long term (current) use of aspirin; Z80.8 Family history of malignant neoplasm of other organs or systems; Z82.61 Family history of arthritis; Z83.3 Family history of diabetes mellitus; Z98.890 Other specified postprocedural states
CPT/HCPCS: 36415; 71010; 71020; 80048; 80053; 80076; 81001; 82330; 82803; 82805; 82947; 82962; 83036; 83540; 83550; 83605; 83735; 84132; 84145; 84295; 85014; 85018; 85025; 85347; 85610; 85730; 86850; 86900; 86901; 86920; 87641; 88304; 88305; 88311; 93005; 93312; 93320; 93325; 94002; 94640; 94660; 94770; A9270-GY; C1713; C1769; C1898; C8924; J0690; J1644; J2150; J2250; J2260; J2370; J2405; J2440; J2597; J2720; J2795; J2930; J3010; J3475; P9045; P9047; P9059; Q9957